=== PATIENT | female | born 1980 | race Caucasian/White ===

== ENCOUNTER 2018-02-09 20:04 | Emergency (ER) | payer BC ==
[~2018-02-09] VITALS: Ht 172.7 cm; Wt 95.2 kg
[~2018-02-09 20:04] MED LIST: AMOXICILLIN500 MG PO; CYCLOBENZAPRINE5 MG PO; DILAUDID4 MG PO; IBUPROFEN600 MG PO; MOTRIN600 MG PO; NAPROSYN500 MG PO; PERCOCET 5-3251 EACH PO
[2018-02-09] MEDS ORDERED: ZOFRAN ODT4 MG PO (20:20)
--- NOTE | 2018-02-10 15:28 | EKG ---
[facility] [address] [place] [address] Signed Normal sinus rhythm Possible Left atrial enlargement T wave abnormality, consider anterior ischemia Abnormal ECG No previous ECGs available Confirmed by ABDON READ MD ([id number]) on 02/10/2018 3:28:19 PM Electronically Signed By: ABDON READ MD 02/10/18 1528 PATIENT NAME: OWEN MARCASEY TIMMONSE Electrocardiogram DATE OF : 76 PHYSICIAN: ABDON READ MD REPORT #: [id number] REPORT IS CONFIDENTIAL AND NOT TO BE RELEASED WITHOUT AUTHORIZATION
== END 2018-02-09 22:20 | disposition home or self-care (01) ==
LOC: ED 20:04
DX: R07.9 Chest pain, unspecified (principal); Z87.891 Personal history of nicotine dependence; Z88.2 Allergy status to sulfonamides; Z88.8 Allergy status to other drugs, medicaments and biological substances
CPT/HCPCS: 71045; 80053; 84484; 85025; 85379; 93005; 93010; 96360; 96361; 99285; J7030

== ENCOUNTER 2018-04-23 09:31 | Emergency (ER) | payer BC ==
[~2018-04-23] VITALS: Ht 172.7 cm; Wt 95.2 kg
--- OUTSIDE RECORDS SUMMARY | ~2018-04-23 | XMS | Clinical Summary ---
Demographics + + + | Address | [address] | | | [place] [address] | + + + | Home Phone | | + + + | Preferred Language | Unknown | + + + | Marital Status | | + + + | Quaker Affiliation | Unknown | + + + | Race | Unknown | + + + | Ethnic Group | Unknown | + + + Author + + + | Author | [facility] | + + + | Organization | [facility] | + + + | Address | Unknown | + + + | Phone | Unavailable | + + + Support + + +---------+ + | Name | Relationship | Address | Phone | + + +---------+ + | David Mar | ECON | Unknown | | + + +---------+ + Care Team Providers + +------+ + | Care Bilingual Customer Service Name | Role | Phone | + +------+ + | Medicine, [place] | PP | Unavailable | | Family | | | + +------+ + Allergies + + + + + + | Active Allergy | Reactions | Severity | Noted | Comments | | | | | Date | | + + + + + + | Chlorhexidine | Rash | Medium | 02/08/20 | | | | | | 17 | | + + + + + + | Hydrocodone | Hives | High | 02/08/20 | | | | | | 17 | | + + + + + + | Iodinated Diagnostic | Nausea and Vomiting | Low | 02/08/20 | | | Agents | | | 17 | | + + + + + + | Nsaids | Rash, Vertigo | Medium | 02/08/20 | | | | | | 17 | | + + + + + + | Sulfa Antibiotics | Anaphylaxis | High | 02/08/20 | | | | | | 17 | | + + + + + + | Sulfites | Anaphylaxis | High | 02/08/20 | | | | | | 17 | | + + + + + + Current Medications No known medications Active Problems No known active problems Encounters +--------+ + + + + | Date | Type | Specialty | Care Team | Description | +--------+ + + + + | 02/14/ | Ancillary | | Virginia Villatoro, | H/O mitral valve | | 2017 | Procedure | | PA-C | repair | +--------+ + + + + | 02/14/ | Ancillary | | Virginia Villatoro, | H/O mitral valve | | 2017 | Orders | | PA-C | repair | +--------+ + + + + from Last 3 Months Family History + + +------+ + | Medical History | Relation | Name | Comments | + + +------+ + | Thyroid disease | Paternal | | | | | Grandmoth | | | | | er | | | + + +------+ + + +------+--------+ + | Relation | Name | Status | Comments | + +------+--------+ + | Paternal Grandmother | | | | + +------+--------+ + Social History + +-------+ +--------+------+ | Tobacco Use | Types | Packs/Day | Years | Date | | | | | Used | | + +-------+ +--------+------+ | Former Smoker | | | | | + +-------+ +--------+------+ + + + | Sex Assigned at | Date Recorded | | | | + + + | Not on file | | + + + Last Filed Vital Signs + + + + | Vital Sign | Reading | Time Taken | + + + + | Blood Pressure | 102/74 | 02/07/2017 1:26 PM PDT | + + + + | Pulse | 78 | 02/07/2017 1:26 PM PDT | + + + + | Temperature | - | - | + + + + | Respiratory Rate | - | - | + + + + | Oxygen Saturation | 98% | 02/07/2017 1:26 PM PDT | + + + + | Inhaled Oxygen | - | - | | Concentration | | | + + + + | Weight | 98.3 kg (216 lb 11.2 | 02/07/2017 1:26 PM PDT | | | oz) | | + + + + | Height | - | - | + + + + | Body Mass Index | - | - | + + + + Plan of Treatment + + + + + | Health Maintenance | Due Date | Last Done | Comments | + + + + + | Vaccine: | | | | | Dtap/Tdap/Td (1 - | 7 | | | | Tdap) | | | | + + + + + | Cervical Cancer | | | | | Screening (Pap) | 8 | | | + + + + + | Vaccine: Influenza | | | | | (#1) | 8 | | | + + + + + Procedures + +--------+ + + + | Procedure Name | Priori | Date/Time | Associated Diagnosis | Comments | | | ty | | | | + +--------+ + + + | ECHO OUTSIDE | Routin | 02/14/2018 | H/O mitral valve | Results for this | | INTERPRETATION | e | 10:42 AM | repair | procedure are in the | | STANDARD | | PDT | | results section. | + +--------+ + + + from Last 3 Months Results ECHO outside interpretation standard (02/14/2018 10:42 AM) + + + | Impressions | Performed At | + + + | 1. The left ventricle is normal in size, wall thickness and systolic | [facility] | | function EF 60-65%. 2. The right ventricle is normal in size and | [facility] | | function. 3. Mitral ring annulloplasty is in place with no stenosis | | | and trace regurgitation. 4. There is no pericardial effusion. | | + + + + + + | Narrative | Performed At | + + + | Patient Name: Barb Mar Date of : 1980 | [facility] | | Performing Physician: Andra Powell | RADIOLOGY | | | | | INDICATIONS S/P MV repair CONCLUSIONS | | | 1. The left ventricle is normal in size, wall thickness and systolic | | | function EF 60-65%. 2. The right ventricle is normal in size and | | | function. 3. Mitral ring annulloplasty is in place with no stenosis | | | and trace regurgitation. 4. There is no pericardial effusion. | | | FINDINGS -------- ECG rhythm: Sinus rhythm. Study: A 2-dimensional | | | transthoracic echocardiogram with m-mode, spectral and color flow | | | Doppler was perfomed. Study: This was a technically adequate study. | | | Left Ventricle: Overall left ventricular systolic function is normal | | | with, an EF between 60 - 65 %. Left Ventricle: The left ventricle | | | cavity size is normal. Left Ventricle: No regional wall motion | | | abnormalities. Right Ventricle: The right ventricle is normal in size | | | and function. Left Atrium: The left atrium is normal in size. Right | | | Atrium: The right atrium is normal in size. Aortic Valve: The | | | aortic valve is trileaflet. Aortic Valve: There is no evidence of | | | aortic regurgitation. Aortic Valve: There is no evidence of aortic | | | stenosis. Mitral Valve: There is trace mitral regurgitation. Mitral | | | Valve: Mitral ring annulloplasty is in place. Tricuspid Valve: The | | | tricuspid valve appears structurally normal. Tricuspid Valve: Trace | | | tricuspid regurgitation present. Tricuspid Valve: There is no | | | evidence of pulmonary hypertension. Tricuspid Valve: The right | | | ventricular systolic pressure (pulmonary artery systolic pressure), as | | | measured by Doppler, is 23.83mmHg. Pulmonic Valve: The pulmonic | | | valve is normal. Pericardium: There is no pericardial effusion. | | | Pericardium: No pleural effusion seen. IVC/Hepatic Veins: The IVC is | | | small (<1.5cm) and collapses with sniff, consistent with central | | | venous pressures of 0-5mmHg. Aorta: The aortic root, ascending aorta | | | and aortic arch are normal. MEASUREMENTS Ao | | | asc: 2.98 cm Ao Diam: 2.[address] junct: 3.00 cm | | | IVC: 1.37 cm LA Diam: 4.70 cm LA Major: 4.98 cm | | | EDV(Teich): 128.44 ml IVSd: 0.91 cm LVIDd: 5.18 cm | | | LVPWd: 0.99 cm LVOT Area: 3.96 cm2 LVOT Diam: 2.24 cm | | | %FS: 26.26 % EF(Teich): 51.13 % ESV(Teich): 62.76 ml | | | LVIDs: 3.82 cm SV(Teich): 65.68 ml RA Major: 6.05 cm RV | | | Major: 8.16 cm RVIDd: 2.84 cm TV Debbie Diam: 3.24 cm Ao | | | Root: 2.93 cm Ao Diam SVals: 2.98 cm LVEF MOD A2C: 56.44 | | | % SV MOD A2C: 52.96 ml LVEF MOD A4C: 61.84 % SV MOD | | | A4C: 69.79 ml EF Biplane: 59.62 % LVEDV MOD BP: 104.53 | | | ml LVESV MOD BP: 42.20 ml LVEDV MOD A2C: 93.82 ml LVLd | | | A2C: 8.14 cm LVEDV MOD A4C: 112.85 ml LVLd A4C: 8.46 cm | | | LVESV MOD A2C: 40.86 ml LVLs A2C: 7.20 cm LVESV MOD | | | A4C: 43.06 ml LVLs A4C: 7.05 cm LAESV(A-L): 42.71 ml | | | LAESV Index (A-L): 20.43 ml/m2 LAAs A2C: 15.63 cm2 LAESV A-L | | | A2C: 40.81 ml LALs A2C: 5.08 cm LAAs A4C: 16.36 cm2 | | | LAESV A-L A4C: 44.66 ml LALs A4C: 5.08 cm RAAs: 18.39 | | | cm2 RAESV A-L: 49.99 ml RAESV MOD: 48.83 ml RALs: 5.74 | | | cm TAPSE: 2.56 cm AV maxP.33 mmHg AV meanP.47 | | | mmHg AV Vmax: 1.15 m/s AV Vmean: 0.72 m/s AV VTI: 22.16 | | | cm ZULLY Vmax: 2.78 cm2 ZULLY (VTI): 3.49 cm2 LVOT maxPG: | | | 2.62 mmHg LVOT meanP.58 mmHg LVSI Dopp: 37.03 ml/m2 | | | LVSV Dopp: 77.40 ml LVOT Vmax: 0.81 m/s LVOT Vmean: 0.59 | | | m/s LVOT VTI: 19.53 cm MV A Kieran: 0.58 m/s MV Dec | | | [place]: 5.68 m/s2 MV DecT: 254.23 ms MV E Kieran: 1.44 m/s | | | MV E/A Ratio: 2.46 MV PHT: 73.72 ms MVA By PHT: 2.98 | | | cm2 MV maxP.20 mmHg MV meanP.81 mmHg MV Vmax: | | | 1.43 m/s MV Vmean: 0.57 m/s MV VTI: 35.69 cm MVA (VTI): | | | 2.16 cm2 Septal e': 0.05 m/s Septal E/e': 27.71 Lateral | | | e': 0.08 m/s Lateral E/e': 17.14 RAP: 5 mmHg RVSP: | | | 23.83 mmHg TR maxP.83 mmHg TR Vmax: 2.16 m/s S': | | | 0.11 m/s Content Director: JERSEY Authenticated by: Andra Powell | | | Report Date/Time: 02-14-2018 12:9:45 | | + + + + + | Procedure Note | + + | Gonzalo Negron Results In - 02/14/2018 12:10 PM PDT Patient Name: Karen Mar | | : 1980Accession: [id number] Physician: Andra | | Sherry INDICATIONS------ | | -----S/P MV repairCONCLUSIONS 1. The left ventricle is normal in size, wall | | thickness and systolic function EF 60-65%.2. The right ventricle is normal in size and | | function.3. Mitral ring annulloplasty is in place with no stenosis and trace | | regurgitation. 4. There is no pericardial effusion.FINDINGS--------ECG rhythm: Sinus | | rhythm.Study: A 2-dimensional transthoracic echocardiogram with m-mode, spectral and | | color flow Doppler was perfomed. Study: This was a technically adequate study.Left | | Ventricle: Overall left ventricular systolic function is normal with, an EF between 60 - | | 65 %. Left Ventricle: The left ventricle cavity size is normal. Left Ventricle: No | | regional wall motion abnormalities.Right Ventricle: The right ventricle is normal in | | size and function.Left Atrium: The left atrium is normal in size.Right Atrium: The right | | atrium is normal in size. Aortic Valve: The aortic valve is trileaflet. Aortic Valve: | | There is no evidence of aortic regurgitation. Aortic Valve: There is no evidence of | | aortic stenosis.Mitral Valve: There is trace mitral regurgitation. Mitral Valve: Mitral | | ring annulloplasty is in place.Tricuspid Valve: The tricuspid valve appears structurally | | normal. Tricuspid Valve: Trace tricuspid regurgitation present. Tricuspid Valve: There | | is no evidence of pulmonary hypertension. Tricuspid Valve: The right ventricular | | systolic pressure (pulmonary artery systolic pressure), as measured by Doppler, is | | 23.83mmHg.Pulmonic Valve: The pulmonic valve is normal.Pericardium: There is no | | pericardial effusion. Pericardium: No pleural effusion seen.IVC/Hepatic Veins: The IVC | | is small (<1.5cm) and collapses with sniff, consistent with central venous pressures of | | 0-5mmHg.Aorta: The aortic root, ascending aorta and aortic arch are | | normal.MEASUREMENTS Ao asc: 2.98 cmAo Diam: 2.[address] junct: 3.00 | | cmIVC: 1.37 cmLA Diam: 4.70 cmLA Major: 4.98 cmEDV(Teich): 128.44 mlIVSd: 0.91 | | cmLVIDd: 5.18 cmLVPWd: 0.99 cmLVOT Area: 3.96 [id number] Diam: 2.24 cm%FS: 26.26 | | %EF(Teich): 51.13 %ESV(Teich): 62.76 mlLVIDs: 3.82 cmSV(Teich): 65.68 mlRA | | Major: 6.05 cmRV Major: 8.16 cmRVIDd: 2.84 cmTV Debbie Diam: 3.24 cmAo Root: 2.93 | | cmAo Diam SVals: 2.98 cmLVEF MOD A2C: 56.44 %SV MOD A2C: 52.96 mlLVEF MOD A4C: | | 61.84 %SV MOD A4C: 69.79 mlEF Biplane: 59.62 %LVEDV MOD BP: 104.53 mlLVESV MOD BP: | | 42.20 mlLVEDV MOD A2C: 93.82 mlLVLd A2C: 8.14 cmLVEDV MOD A4C: 112.85 mlLVLd | | A4C: 8.46 cmLVESV MOD A2C: 40.86 mlLVLs A2C: 7.20 cmLVESV MOD A4C: 43.06 mlLVLs | | A4C: 7.05 cmLAESV(A-L): 42.71 mlLAESV Index (A-L): 20.43 ml/m2LAAs A2C: 15.63 | | [id number] A-L A2C: 40.81 mlLALs A2C: 5.08 cmLAAs A4C: 16.36 [id number] A-L A4C: | | 44.66 mlLALs A4C: 5.08 cmRAAs: 18.39 [id number] A-L: 49.99 mlRAESV MOD: 48.83 | | mlRALs: 5.74 cmTAPSE: 2.56 cmAV maxP.33 mmHgAV meanP.47 mmHgAV Vmax: | | 1.15 m/Falguni Vmean: 0.72 m/Falguni VTI: 22.16 cmAVA Vmax: 2.78 cm2AVA (VTI): 3.49 | | [id number] maxP.62 mmHgLVOT meanP.58 mmHgLVSI Dopp: 37.03 ml/m2LVSV Dopp: | | 77.40 mlLVOT Vmax: 0.81 m/sLVOT Vmean: 0.59 m/sLVOT VTI: 19.53 cmMV A Kieran: 0.58 | | m/sMV Dec [place]: 5.68 m/s2MV DecT: 254.23 msMV E Kieran: 1.44 m/sMV E/A Ratio: 2.46 | | MV PHT: 73.72 msMVA By PHT: 2.98 cm2MV maxP.20 mmHgMV meanP.81 mmHgMV | | Vmax: 1.43 m/sMV Vmean: 0.57 m/sMV VTI: 35.69 cmMVA (VTI): 2.16 [id number] e': | | 0.05 m/sSeptal E/e': 27.71 Lateral e': 0.08 m/sLateral E/e': 17.14 RAP: 5 | | mmHgRVSP: 23.83 mmHgTR maxP.83 mmHgTR Vmax: 2.16 m/sS': 0.11 | | m/sSonographer: DHAuthenticated by: Andra PowellSt. Mary'S Medical Centerquique Date/Time: 02-14-2018 | | 12:9:45IMPRESSION:1. The left ventricle is normal in size, wall thickness and systolic | | function EF 60-65%.2. The right ventricle is normal in size and function.3. Mitral ring | | annulloplasty is in place with no stenosis and trace regurgitation. 4. There is no | | pericardial effusion. | |IVC: 1.37 cm | |LA Diam: 4.70 cm | |LA Major: 4.98 cm | |EDV(Teich): 128.44 ml | |IVSd: 0.91 cm | |LVIDd: 5.18 cm | |LVPWd: 0.99 cm | |LVOT Area: 3.96 cm2 | |LVOT Diam: 2.24 cm | |%FS: 26.26 % | |EF(Teich): 51.13 % | |ESV(Teich): 62.76 ml | |LVIDs: 3.82 cm | |SV(Teich): 65.68 ml | |RA Major: 6.05 cm | |RV Major: 8.16 cm | |RVIDd: 2.84 cm | |TV Debbie Diam: 3.24 cm | |Ao Root: 2.93 cm | |Ao Diam SVals: 2.98 cm | |LVEF MOD A2C: 56.44 % | |SV MOD A2C: 52.96 ml | |LVEF MOD A4C: 61.84 % | |SV MOD A4C: 69.79 ml | |EF Biplane: 59.62 % | |LVEDV MOD BP: 104.53 ml | |LVESV MOD BP: 42.20 ml | |LVEDV MOD A2C: 93.82 ml | |LVLd A2C: 8.14 cm | |LVEDV MOD A4C: 112.85 ml | |LVLd A4C: 8.46 cm | |LVESV MOD A2C: 40.86 ml | |LVLs A2C: 7.20 cm | |LVESV MOD A4C: 43.06 ml | |LVLs A4C: 7.05 cm | |LAESV(A-L): 42.71 ml | |LAESV Index (A-L): 20.43 ml/m2 | |LAAs A2C: 15.63 cm2 | |LAESV A-L A2C: 40.81 ml | |LALs A2C: 5.08 cm | |LAAs A4C: 16.36 cm2 | |LAESV A-L A4C: 44.66 ml | |LALs A4C: 5.08 cm | |RAAs: 18.39 cm2 | |RAESV A-L: 49.99 ml | |RAESV MOD: 48.83 ml | |RALs: 5.74 cm | |TAPSE: 2.56 cm | |AV maxP.33 mmHg | |AV meanP.47 mmHg | |AV Vmax: 1.15 m/s | |AV Vmean: 0.72 m/s | |AV VTI: 22.16 cm | |ZULLY Vmax: 2.78 cm2 | |ZULLY (VTI): 3.49 cm2 | |LVOT maxP.62 mmHg | |LVOT meanP.58 mmHg | |LVSI Dopp: 37.03 ml/m2 | |LVSV Dopp: 77.40 ml | |LVOT Vmax: 0.81 m/s | |LVOT Vmean: 0.59 m/s | |LVOT VTI: 19.53 cm | |MV A Kieran: 0.58 m/s | |MV Dec [place]: 5.68 m/s2 | |MV DecT: 254.23 ms | |MV E Kieran: 1.44 m/s | |MV E/A Ratio: 2.46 | |MV PHT: 73.72 ms | |MVA By PHT: 2.98 cm2 | |MV maxP.20 mmHg | |MV meanP.81 mmHg | |MV Vmax: 1.43 m/s | |MV Vmean: 0.57 m/s | |MV VTI: 35.69 cm | |MVA (VTI): 2.16 cm2 | |Septal e': 0.05 m/s | |Septal E/e': 27.71 | |Lateral e': 0.08 m/s | |Lateral E/e': 17.14 | |RAP: 5 mmHg | |RVSP: 23.83 mmHg | |TR maxP.83 mmHg | |TR Vmax: 2.16 m/s | |S': 0.11 m/s | | | |Content Director: | |Authenticated by: Andra Powell | |Report Date/Time: 02-14-2018 12:9:45 | | | |IMPRESSION: | |1. The left ventricle is normal in size, wall thickness and systolic function EF 60-65%. | |2. The right ventricle is normal in size and function. | |3. Mitral ring annulloplasty is in place with no stenosis and trace regurgitation. | |4. There is no pericardial effusion. | + + + + + + + | Performing | Address | City/State/Zipcode | Phone Number | | Organization | | | | + + + + + | [facility] | [address] | [place] [address] | | + + + + + from Last 3 Months Insurance +---------+--------+ +------+-------+---------+ | Payer | Benefi | Subscriber | Type | Phone | Address | | | t Plan | ID | | | | | | / | | | | | | | Group | | | | | +---------+--------+ +------+-------+---------+ | [employer] | BLUE | [id number] | | | | | | CROSS | 8 | | | | | | BLUE | | | | | | | SHIELD | | | | | | | FEP | | | | | +---------+--------+ +------+-------+---------+ + +--------+ +--------+ + + | Guarantor Name | Accoun | Relation to | Date | Phone | Billing Address | | | t Type | Patient | of | | | | | | | | | | + +--------+ +--------+ + + | BARB MAR | Person | Self [birth year] Home: | [address] | | | al/Fam | | 1980 | [phone] | [place] [address] | | | sae | | | [phone] | | + +--------+ +--------+ + +"
--- OUTSIDE RECORDS SUMMARY | ~2018-04-23 | XMS | Clinical Summary ---
Demographics + + + | Address | [address] | | | [place] [address] | + + + | Home Phone | | + + + | Preferred Language | Unknown | + + + | Marital Status | | + + + | Anabaptism Affiliation | Unknown | + + + | Race | Unknown | + + + | Ethnic Group | Unknown | + + + Author + + + | Author | [facility] | + + + | Organization | [facility] | + + + | Address | Unknown | + + + | Phone | Unavailable | + + + Support + + +---------+ + | Name | Relationship | Address | Phone | + + +---------+ + | David Mar | ECON | Unknown | | + + +---------+ + Care Team Providers + +------+ + | Care Realtime Reporter Name | Role | Phone | + +------+ + | Medicine, [place] | PP | Unavailable | | Family [...] Barb Mar Date of : 1980 | [facility] | | Performing Physician: Andra Powell | [...] 0.58 m/s MV Dec | | | Crisp: 5.68 m/s2 MV DecT: 254.23 ms MV [...] m/s S': | | | 0.11 m/s Worker'S Compensation Claims Examiner: JERSEY Authenticated by: Andra Powell | | | Report Date/Time: 02-14-2018 12:9:45 | | + + + + + | Procedure Note | + + | Gonzalo Negron Results In - 02/14/2018 12:10 PM PDT Patient Name: Karen Mar | | : 1980Accession: [id number] Physician: Andra | | Sherry INDICATIONS------ | [...] cmLVIDd: 5.18 cmLVPWd: 0.99 cmLVOT Area: 3.96 [id number] Diam: 2.24 cm%FS: 26.26 | | %EF(Teich): [...] (A-L): 20.43 ml/m2LAAs A2C: 15.63 | | [id number] A-L A2C: 40.81 mlLALs A2C: 5.08 cmLAAs A4C: 16.36 gs6IQHAM A-L A4C: | | 44.66 mlLALs A4C: 5.08 cmRAAs: 18.39 [id number] A-L: 49.99 mlRAESV MOD: 48.83 | | mlRALs: 5.74 cmTAPSE: 2.56 cmAV maxP.33 mmHgAV meanP.47 mmHgAV Vmax: | | 1.15 m/Falguni Vmean: 0.72 m/Falguni VTI: 22.16 cmAVA Vmax: 2.78 cm2AVA (VTI): 3.49 | | [id number] maxP.62 mmHgLVOT meanP.58 mmHgLVSI Dopp: 37.03 ml/m2LVSV Dopp: | | 77.40 mlLVOT Vmax: 0.81 m/sLVOT Vmean: 0.59 m/sLVOT VTI: 19.53 cmMV A Kieran: 0.58 | | m/sMV Dec Crisp: 5.68 m/s2MV DecT: 254.23 msMV E Kieran: 1.44 m/sMV E/A Ratio: 2.46 | | MV PHT: 73.72 msMVA By PHT: 2.98 cm2MV maxP.20 mmHgMV meanP.81 mmHgMV | | Vmax: 1.43 m/sMV Vmean: 0.57 m/sMV VTI: 35.69 cmMVA (VTI): 2.16 [id number] e': | | 0.05 m/sSeptal E/e': 27.71 Lateral e': 0.08 m/sLateral E/e': 17.14 RAP: 5 | | mmHgRVSP: 23.83 mmHgTR maxP.83 mmHgTR Vmax: 2.16 m/sS': 0.11 | | m/sSonographer: DHAuthenticated by: Andra PowellWayne Healthcare Main Campusquique Date/Time: 02-14-2018 | | 12:9:45IMPRESSION:1. The left [...] A Kieran: 0.58 m/s | |MV Dec Crisp: 5.68 m/s2 | |MV DecT: 254.23 ms [...] | |S': 0.11 m/s | | | |Worker'S Compensation Claims Examiner: | |Authenticated by: Andra Powell | |Report [...] [facility] | [address] | [place] [address] | | + + + + + from Last 3 Months Insurance +---------+--------+ +------+-------+---------+ | Payer | Benefi | Subscriber | Type | Phone | Address | | | t Plan | ID | | | | | | / | | | | | | | Group | | | | | +---------+--------+ +------+-------+---------+ | [employer] | BLUE | [id number] | | | | | | CROSS [...] Self | [birth year] | Home: | [address] | | | al/Fam | | 1980 | [phone] | [place] [address] | | | sae | | | [phone] | | + +--------+ +--------+ + +"
--- OUTSIDE RECORDS SUMMARY | ~2018-04-23 | XMS | Clinical Summary ---
Demographics + + + | Address | [address] | | | [place] [address] | + + + | Home Phone | | + + + | Preferred Language | Unknown | + + + | Marital Status | | + + + | Voodoo Affiliation | NON | + + + | Race | White | + + + | Ethnic Group | Not or | + + + Author + + + | Author | [facility] | + + + | Organization | [facility] | + + + | Address | Unknown | + + + | Phone | Unavailable | + + + Support + + + + + | Name | Relationship | Address | Phone | + + + + + | PEGGY MAR | ECON | [address] | | | | | [place] | | | | | [address] | | + + + + + Care Team Providers + +------+ + | Care Data Processing Specialist Name | Role | Phone | + +------+ + | Joanne Florence | PP | Unavailable | + +------+ + Source Comments ISADORA is fully live on both [facility] Ambulatory and [facility] InPatient.Formerly [facility] Allergies + + + + + + | Active Allergy | Reactions | Severity | Noted | Comments | | | | | Date | | + + + + + + | Contrast Medium | Nausea and Vomiting | | 10/17/19 | MRI contrast | | | | | 16 | | + + + + + + | Naproxen | Rash | | 01/17/20 | | | | | | 16 | | + + + + + + | Prednisone | Mental Status Change | High | 02/03/20 | Mood changes. 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 | + + + Family History + + +------+ + | Medical History | Relation | Name | Comments | + + +------+ + | Allergies | Father | | | + + +------+ + | Blood Disease | Father | | | + + +------+ + | Allergies | Mother | | | + + +------+ + | Arthritis | Mother | | | + + +------+ + | Cancer | Paternal | | | | | Aunt | | | + + +------+ + | Psychiatry | Paternal | | | | | Aunt | | | + + +------+ + | Thyroid | Paternal | | | | | Grandmoth | | | | | er | | | + + +------+ + + +------+--------+ + | Relation | Name | Status | Comments | + +------+--------+ + | Father | | | | + +------+--------+ + | Mother | | | | + +------+--------+ + | Paternal Aunt | | | | + +------+--------+ + | Paternal Grandmother | | | | + +------+--------+ + Social History + + + +--------+ + | Tobacco Use | Types | Packs/Day | Years | Date | | | | | Used | | + + + +--------+ + | Former Smoker | Cigarettes | | 2 | 02/02/1998 - | | | | | | 08/05/1999 | + + + +--------+ + + +---+---+---+ | Smokeless Tobacco: | | | | | Never Used | | | | + +---+---+---+ + + | Tobacco Cessation: Counseling Given: No | + + + + +---------+ + | Alcohol Use | Drinks/We | oz/Week | Comments | | | ek | | | + + +---------+ + | Yes | 0 | 0.0 | social | | | Standard | | | | | drinks or | | | | | | | | | | equivalen | | | | | t | | | + + +---------+ + + + + | Sex Assigned at | Date Recorded | | | | + + + | Not on file | | + + + Last Filed Vital Signs + + + + | Vital Sign | Reading | Time Taken | + + + + | Blood Pressure | 139/79 | 04/25/2016 9:55 AM PDT | + + + + | Pulse | 80 | 04/25/2016 9:55 AM PDT | + + + + | Temperature | 36.6 C (97.9 F) | 02/23/2016 10:58 AM PDT | + + + + | Respiratory Rate | 16 | 02/23/2016 10:58 AM PDT | + + + + | Oxygen Saturation | 96% | 04/25/2016 9:55 AM PDT | + + + + | Inhaled Oxygen | - | - | | Concentration | | | + + + + | Weight | 96.8 kg (213 lb 6.4 | 02/23/2016 10:58 AM PDT | | | oz) | | + + + + | Height | 172.7 cm (5' 8") | 02/10/2016 1:37 PM PDT | + + + + | Body Mass Index | 32.45 | 02/23/2016 10:58 AM PDT | + + + + Plan of Treatment + + + + + | Health Maintenance | Due Date | Last Done | Comments | + + + + + | INFLUENZA VACCINE | 09/01/201 | | | | (FLU SHOT) | 8 | | | + + + + + Results Not on filefrom Last 3 Months Insurance + +--------+ +------+ + + | Payer | Benefi | Subscriber | Type | Phone | Address | | | t Plan | ID | | | | | | / | | | | | | | Group | | | | | + +--------+ +------+ + + | BLUE [employer] BLUE | BCBS | xxxxxxxxxxx | PPO | +- | [address] [address] [place] | | SHIELD | OUT OF | x | | [phone] | [place], [place] | | | [place] | | | | [address] | + +--------+ +------+ + + + +--------+ +--------+ + + | Guarantor Name | Accoun | Relation to | Date | Phone | Billing Address | | | t Type | Patient | of | | | | | | | | | | + +--------+ +--------+ + + | BARB MAR | Person | Self | [birth year] | Home: | [address] | | | al/Fam | | 1980 | [phone] | [place] [address] | | | sae | | | [phone] | | + +--------+ +--------+ + +
--- OUTSIDE RECORDS SUMMARY | ~2018-04-23 | XMS | Encounter Summary ---
Demographics + + + | Address | [address] | | | [place] [address] | + + + | Home Phone | | + + + | Preferred Language | Unknown | + + + | Marital Status | | + + + | Yarsanism Affiliation | Unknown | + + + | Race | Unknown | + + + | Ethnic Group | Unknown | + + + Author + + + | Author | [facility] | + + + | Organization | [facility] | + + + | Address | Unknown | + + + | Phone | Unavailable | + + + Support + + +---------+ + | Name | Relationship | Address | Phone | + + +---------+ + | David Bonilla | ECON | Unknown | | + + +---------+ + Care Team Providers + +------+ + | Care Adult School Counselor Name | Role | Phone | + +------+ + | Medicine, G[place] | PCP | Unavailable | | Family | | | + +------+ + Encounter Details +--------+ + + + + | Date | Type | Department | Care Team | Description | +--------+ + + + + | 02/14/ | Ancillary | [facility] | Virginia Villatoro, | H/O mitral valve | | 2018 | Orders | ECHO | PA-C [address] | repair | | | | | [address]lena [address] | | | | | | [place] | | | | | | [address] | | | | | | [phone] | | | | | | | | +--------+ + + + + Social History + +-------+ +--------+------+ | [...] on file | | + + + as of this encounter Plan of Treatment Not on fileas of this encounter Results ECHO outside interpretation standard (02/14/2018 10:42 AM) + + + | Impressions | Performed At | + + + | 1. The left ventricle is normal in size, wall thickness and systolic | [facility] | | function EF 60-65%. 2. The right ventricle is normal in size and | RADIOLOGY | | function. 3. Mitral ring annulloplasty is in place with no stenosis | | | and trace regurgitation. 4. There is no pericardial effusion. | | + + + + + + | Narrative | Performed At | + + + | Patient Name: Dianne Bonilla Date of : 1980 | [facility] | | Performing Physician: Andra Powell [...] 0.58 m/s MV Dec | | | [place]: 5.68 m/s2 MV DecT: 254.23 ms MV [...] m/s S': | | | 0.11 m/s Product Advisor: JERSEY Authenticated by: Andra Powell | | | Report Date/Time: 02-14-2018 12:9:45 | | + + + + + | Procedure Note | + + | Jamil, Rad Results In - 02/14/2018 12:10 PM PDT Patient Name: Mari Bonilla of | | : 1980Accession: [id number] Physician: Andra | | Alsamara INDICATIONS------ | | -----S/P MV repairCONCLUSIONS 1. [...] cmLVIDd: 5.18 cmLVPWd: 0.99 cmLVOT Area: 3.96 dr8NXWT Diam: 2.24 cm%FS: 26.26 | | %EF(Teich): [...] (A-L): 20.43 ml/m2LAAs A2C: 15.63 | | hr7MTLBC A-L A2C: 40.81 mlLALs A2C: 5.08 cmLAAs A4C: 16.36 ae9GTECA A-L A4C: | | 44.66 mlLALs A4C: 5.08 cmRAAs: 18.39 rn1VBYEL A-L: 49.99 mlRAESV MOD: 48.83 | | mlRALs: 5.74 cmTAPSE: 2.56 cmAV maxP.33 mmHgAV meanP.47 mmHgAV Vmax: | | 1.15 m/Falguni Vmean: 0.72 m/Falguni VTI: 22.16 cmAVA Vmax: 2.78 cm2AVA (VTI): 3.49 | | wj0QLSQ maxP.62 mmHgLVOT meanP.58 mmHgLVSI Dopp: 37.03 ml/m2LVSV Dopp: | | 77.40 mlLVOT Vmax: 0.81 m/sLVOT Vmean: 0.59 m/sLVOT VTI: 19.53 cmMV A Kieran: 0.58 | | m/sMV Dec [place]: 5.68 m/s2MV DecT: 254.23 msMV E Kieran: 1.44 m/sMV E/A Ratio: 2.46 | | MV PHT: 73.72 msMVA By PHT: 2.98 cm2MV maxP.20 mmHgMV meanP.81 mmHgMV | | Vmax: 1.43 m/sMV Vmean: 0.57 m/sMV VTI: 35.69 cmMVA (VTI): 2.16 hd9Mciujf e': | | 0.05 m/sSeptal E/e': 27.71 Lateral e': 0.08 m/sLateral E/e': 17.14 RAP: 5 | | mmHgRVSP: 23.83 mmHgTR maxP.83 mmHgTR Vmax: 2.16 m/sS': 0.11 | | m/sSonographer: DHAuthenticated by: Andra Davisort Date/Time: 02-14-2018 | | 12:9:45IMPRESSION:1. The left [...] A Kieran: 0.58 m/s | |MV Dec [place]: 5.68 m/s2 | |MV DecT: 254.23 ms [...] | |S': 0.11 m/s | | | |Product Advisor: JERSEY | |Authenticated by: Andra Powell | |Report [...] | + + + + + | [facility] | [address] | [place] [address] | | + + + + + in this encounter Visit Diagnoses + + | Diagnosis | + + | H/O mitral valve repair | + + | Personal history of surgery to heart and great vessels, presenting hazards to health | + +"
--- OUTSIDE RECORDS SUMMARY | ~2018-04-23 | XMS | Clinical Summary ---
Demographics + + + | Address | [address] | | | [place] [address] | + + + | Home Phone | | + + + | Preferred Language | Unknown | + + + | Marital Status | Unknown | + + + | Faith Affiliation | Unknown | + + + | Race | Unknown | + + + | Ethnic Group | Unknown | + + + Author + + + | Author | [facility] | | | and [place] | + + + | Organization | [facility] | | | and [place] | + + + | Address | Unknown | + + + | Phone | Unavailable | + + + Support + + +---------+ + | Name | Relationship | Address | Phone | + + +---------+ + | NONE,PER PT | ECON | Unknown | Unavailable | + + +---------+ + Care Team Providers + +------+ + | Care Vacuum Worker Name | Role | Phone | + +------+ + PP | Unavailable | + +------+ + Allergies Not on File Current Medications Not on file Active Problems Not on file Social History + +-------+ +--------+------+ | Tobacco Use | Types | Packs/Day | Years | Date | | | | | Used | | + +-------+ +--------+------+ | Never Assessed | | | | | + +-------+ +--------+------+ + + + | Sex Assigned at | Date Recorded | | | | + + + | Not on file | | + + + Plan of Treatment + [...] + Results Not on filefrom Last 3 Months"
--- OUTSIDE RECORDS SUMMARY | ~2018-04-23 | XMS | Clinical Summary ---
Demographics + + + | Address | [address] | | | [place] [address] | + + + | Home Phone | | + + + | Preferred Language | Unknown | + + + | Marital Status | Unknown | + + + | Yazdanism Affiliation | Unknown | + + + | Race | Unknown | + + + | Ethnic Group | Unknown | + + + Author + + + | Author | [facility] | | | and [place] | + + + | Organization | [facility] | | | and [...] Team Providers + +------+ + | Care Crew Mess Attendant Name | Role | Phone | + [...]
--- OUTSIDE RECORDS SUMMARY | ~2018-04-23 | XMS | Encounter Summary ---
Demographics + + + | Address | [address] | | | [place] [address] | + + + | Home Phone | | + + + | Preferred Language | Unknown | + + + | Marital Status | | + + + | Jew Affiliation | Unknown | + + + | Race | Unknown | + + + | Ethnic Group | Unknown | + + + Author + + + | Author | [facility] | + + + | Organization | [facility] | + + + | Address | Unknown | + + + | Phone | Unavailable | + + + Support + + +---------+ + | Name | Relationship | Address | Phone | + + +---------+ + | David Bonilla | ECON | Unknown | | + + +---------+ + Care Team Providers + +------+ + | Care Gum Puller Name | Role | Phone | + +------+ + | Medicine, [place] | PCP | Unavailable | | Family | | | + +------+ + Encounter Details +--------+ + + + + | Date | Type | Department | Care Team | Description | +--------+ + + + + | 02/14/ | Ancillary | [facility] | Virginia Villatoro, | H/O mitral valve | | 2018 | Procedure | ECHO | PA-C [address] | repair | | | | | [address]lena [address] | | | | | | [place] | | | | | | [address] | | | | | | [phone] | | | | | | | [...] Treatment Not on fileas of this encounter Procedures + +--------+ + + + | [...] section. | + +--------+ + + + in this encounter Results ECHO outside interpretation standard [...] Dianne Bonilla Date of : 1980 | [facility] | | Performing Physician: Andra [...] 0.58 m/s MV Dec | | | [place]: 5.68 m/s2 MV DecT: 254.23 ms MV [...] m/s S': | | | 0.11 m/s Food And Nutrition Teacher: JERSEY Authenticated by: Andra Powell | | | Report Date/Time: 02-14-2018 12:9:45 | | + + + + + | Procedure Note | + + | Gonzalo Negron In - 02/14/2018 12:10 PM PDT Patient Name: Mari Bonilla of | | : 1980Accession: [id number] Physician: Andra | | Sherry INDICATIONS------ | [...] cmLVIDd: 5.18 cmLVPWd: 0.99 cmLVOT Area: 3.96 fj1GEGF Diam: 2.24 cm%FS: 26.26 | | %EF(Teich): [...] (A-L): 20.43 ml/m2LAAs A2C: 15.63 | | bo0YJTUX A-L A2C: 40.81 mlLALs A2C: 5.08 cmLAAs A4C: 16.36 wq9FQTWN A-L A4C: | | 44.66 mlLALs A4C: 5.08 cmRAAs: 18.39 cs3LUVGG A-L: 49.99 mlRAESV MOD: 48.83 | | mlRALs: 5.74 cmTAPSE: 2.56 cmAV maxP.33 mmHgAV meanP.47 mmHgAV Vmax: | | 1.15 m/Falguni Vmean: 0.72 m/Falguni VTI: 22.16 cmAVA Vmax: 2.78 cm2AVA (VTI): 3.49 | | nv4SNPE maxP.62 mmHgLVOT meanP.58 mmHgLVSI Dopp: 37.03 ml/m2LVSV Dopp: | | 77.40 mlLVOT Vmax: 0.81 m/sLVOT Vmean: 0.59 m/sLVOT VTI: 19.53 cmMV A Kieran: 0.58 | | m/sMV Dec [place]: 5.68 m/s2MV DecT: 254.23 msMV E Kieran: 1.44 m/sMV E/A Ratio: 2.46 | | MV PHT: 73.72 msMVA By PHT: 2.98 cm2MV maxP.20 mmHgMV meanP.81 mmHgMV | | Vmax: 1.43 m/sMV Vmean: 0.57 m/sMV VTI: 35.69 cmMVA (VTI): 2.16 at9Ecswek e': | | 0.05 m/sSeptal E/e': 27.71 Lateral e': 0.08 m/sLateral E/e': 17.14 RAP: 5 | | mmHgRVSP: 23.83 mmHgTR maxP.83 mmHgTR Vmax: 2.16 m/sS': 0.11 | | m/sSonographer: DHAuthenticated by: Andra PowellAvita Health System [facility] Hospitalort Date/Time: 02-14-2018 | | 12:9:45IMPRESSION:1. The left [...] A Kieran: 0.58 m/s | |MV Dec [place]: 5.68 m/s2 | |MV DecT: 254.23 ms [...] | |S': 0.11 m/s | | | |Food And Nutrition Teacher: JERSEY | |Authenticated by: Andra Powell | [...] | + + + + + | [facility] | [address] | [place] [address] | | + + + + + in this encounter Visit Diagnoses + + | Diagnosis | + + | H/O mitral valve repair | + + | Personal history of surgery to heart and great vessels, presenting hazards to health | + +"
--- OUTSIDE RECORDS SUMMARY | ~2018-04-23 | XMS | Encounter Summary ---
Demographics + + + | Address | [address] | | | [place] [address] | + + + | Home Phone | | + + + | Preferred Language | Unknown | + + + | Marital Status | | + + + | Mosque Affiliation | Unknown | + + + | Race | Unknown | + + + | Ethnic Group | Unknown | + + + Author + + + | Author | [facility] | + + + | Organization | [facility] | + + + | Address | Unknown | + + + | Phone | Unavailable | + + + Support + + +---------+ + | Name | Relationship | Address | Phone | + + +---------+ + | David Bonilla | ECON | Unknown | | + + +---------+ + Care Team Providers + +------+ + | Care Chemical Plant Manager Name | Role | Phone | + +------+ + | Medicine, [place] | PCP | Unavailable | | Family | | | + +------+ + Encounter Details +--------+ + + + + | Date | Type | Department | Care Team | Description | +--------+ + + + + | 02/14/ | Ancillary | [facility] | Virginia Villatoro, | H/O mitral valve | | 2018 | Procedure | ECHO | PA-C [address] | repair | | | | | [address]lena [address] | | | | | | [place] | | | | | | [address] | | | | | | [phone] | | | | | | | [...] Dianne Bonilla Date of : 1980 | [facility] | | Performing Physician: Andra Powell [...] 0.58 m/s MV Dec | | | [place]: 5.68 m/s2 MV DecT: 254.23 ms MV [...] m/s S': | | | 0.11 m/s Senior Hadoop Developer: JERSEY Authenticated by: Andra Powell | | | Report Date/Time: 02-14-2018 12:9:45 | | + + + + + | Procedure Note | + + | Gonzalo Negron In - 02/14/2018 12:10 PM PDT Patient Name: Mari Bonilla of | | : 1980Accession: [id number] Physician: Andra | | Sherry INDICATIONS------ | [...] cmLVIDd: 5.18 cmLVPWd: 0.99 cmLVOT Area: 3.96 jp6LORL Diam: 2.24 cm%FS: 26.26 | | %EF(Teich): [...] (A-L): 20.43 ml/m2LAAs A2C: 15.63 | | cs9CDHRG A-L A2C: 40.81 mlLALs A2C: 5.08 cmLAAs A4C: 16.36 jq7VXXSD A-L A4C: | | 44.66 mlLALs A4C: 5.08 cmRAAs: 18.39 bt1NZWYS A-L: 49.99 mlRAESV MOD: 48.83 | | mlRALs: 5.74 cmTAPSE: 2.56 cmAV maxP.33 mmHgAV meanP.47 mmHgAV Vmax: | | 1.15 m/Falguni Vmean: 0.72 m/Falguni VTI: 22.16 cmAVA Vmax: 2.78 cm2AVA (VTI): 3.49 | | dk1AEKZ maxP.62 mmHgLVOT meanP.58 mmHgLVSI Dopp: 37.03 ml/m2LVSV Dopp: | | 77.40 mlLVOT Vmax: 0.81 m/sLVOT Vmean: 0.59 m/sLVOT VTI: 19.53 cmMV A Kieran: 0.58 | | m/sMV Dec [place]: 5.68 m/s2MV DecT: 254.23 msMV E Kieran: 1.44 m/sMV E/A Ratio: 2.46 | | MV PHT: 73.72 msMVA By PHT: 2.98 cm2MV maxP.20 mmHgMV meanP.81 mmHgMV | | Vmax: 1.43 m/sMV Vmean: 0.57 m/sMV VTI: 35.69 cmMVA (VTI): 2.16 id5Cvfwar e': | | 0.05 m/sSeptal E/e': 27.71 Lateral e': 0.08 m/sLateral E/e': 17.14 RAP: 5 | | mmHgRVSP: 23.83 mmHgTR maxP.83 mmHgTR Vmax: 2.16 m/sS': 0.11 | | m/sSonographer: DHAuthenticated by: Andra PowellMercy Health Tiffin Hospitalort Date/Time: 02-14-2018 | | 12:9:45IMPRESSION:1. The [...] A Kieran: 0.58 m/s | |MV Dec [place]: 5.68 m/s2 | |MV DecT: 254.23 ms [...] | |S': 0.11 m/s | | | |Senior Hadoop Developer: JERSEY | |Authenticated by: Andra Powell | [...] | + + + + + | [facility] | [address] | [place] [address] | | + + + + + in this encounter Visit Diagnoses + + | Diagnosis | + + | H/O mitral valve repair | + + | Personal history of surgery to heart and great vessels, presenting hazards to health | + +"
--- OUTSIDE RECORDS SUMMARY | ~2018-04-23 | XMS | Clinical Summary ---
Demographics + + + | Address | [address] | | | [place] [address] | + + + | Home Phone | | + + + | Preferred Language | Unknown | + + + | Marital Status | | + + + | Tenriism Affiliation | NON | + + + | Race | White | + + + | Ethnic Group | Not or | + + + Author + + + | Author | [facility] | + + + | Organization | [facility] | + + + | Address | Unknown | + + + | Phone | Unavailable | + + + Support + + + + + | Name | Relationship | Address | Phone | + + + + + | PEGGY MAR | ECON | [address] | | | | | [place] | | | | | [address] | | + + + + + Care Team Providers + +------+ + | Care Special Needs Bus Driver Name | Role | Phone | + +------+ + | Joanne Florence | PP | Unavailable | + +------+ + Source Comments ISADORA is fully live on both [facility] Ambulatory and [facility] InPatient.Replaced By [facility] Allergies + + + + + + [...] | PPO | +- | [address] [address] [place] | | SHIELD | OUT OF | x | | [address] | [place], [place] | | | [place] | | | | [address] | + +--------+ +------+ + + + +--------+ +--------+ + + | Guarantor Name | Accoun | Relation to | Date | Phone | Billing Address | | | t Type | Patient | of | | | | | | | | | | + +--------+ +--------+ + + | BARB MAR | Person | Self [birth year] | Home: | [address] | | | al/Fam | | 1980 | [phone] | [place] [address] | | | sae | | | [phone] | | + +--------+ +--------+ + +
--- OUTSIDE RECORDS SUMMARY | ~2018-04-23 | XMS | Encounter Summary ---
Demographics + + + | Address | [address] | | | [place] [address] | + + + | Home Phone | | + + + | Preferred Language | Unknown | + + + | Marital Status | | + + + | Mu-Ism Affiliation | Unknown | + + + | Race | Unknown | + + + | Ethnic Group | Unknown | + + + Author + + + | Author | [facility] | + + + | Organization | [facility] | + + + | Address | Unknown | + + + | Phone | Unavailable | + + + Support + + +---------+ + | Name | Relationship | Address | Phone | + + +---------+ + | David Bonilla | ECON | Unknown | | + + +---------+ + Care Team Providers + +------+ + | Care Social Service Technician Name | Role | Phone | + +------+ + | Medicine, [place] | PCP | Unavailable | | Family | | | + +------+ + Encounter Details +--------+ + + + + | Date | Type | Department | Care Team | Description | +--------+ + + + + | 02/14/ | Ancillary | [facility] | Virginia Villatoro, | H/O mitral valve | | 2018 | Orders | ECHO | PA-C [address] | repair | | | | | [address]lena [address] | | | | | | [place] | | | | | | [address] | | | | | | [phone] | | | | | | | [...] in size, wall thickness and systolic | [facility] | | function EF 60-65%. 2. The [...] Dianne Bonilla Date of : 1980 | [facility] | | Performing Physician: Andra Powell | [...] 0.58 m/s MV Dec | | | [place]: 5.68 m/s2 MV DecT: 254.23 ms MV [...] m/s S': | | | 0.11 m/s Commodity Trader: JERSEY Authenticated by: Andra Powell | | | Report Date/Time: 02-14-2018 12:9:45 | | + + + + + | Procedure Note | + + | Jamil, Rad Results In - 02/14/2018 12:10 PM PDT Patient Name: Mari Bonilla of | | : 1980Accession: [id number] Physician: Andra | | Alsamara INDICATIONS------ | [...] cmLVIDd: 5.18 cmLVPWd: 0.99 cmLVOT Area: 3.96 ca2CGMY Diam: 2.24 cm%FS: 26.26 | | %EF(Teich): [...] (A-L): 20.43 ml/m2LAAs A2C: 15.63 | | zi7RMEES A-L A2C: 40.81 mlLALs A2C: 5.08 cmLAAs A4C: 16.36 mt7LEIJH A-L A4C: | | 44.66 mlLALs A4C: 5.08 cmRAAs: 18.39 gk2OMXNF A-L: 49.99 mlRAESV MOD: 48.83 | | mlRALs: 5.74 cmTAPSE: 2.56 cmAV maxP.33 mmHgAV meanP.47 mmHgAV Vmax: | | 1.15 m/Falguni Vmean: 0.72 m/Falguni VTI: 22.16 cmAVA Vmax: 2.78 cm2AVA (VTI): 3.49 | | qa9OODD maxP.62 mmHgLVOT meanP.58 mmHgLVSI Dopp: 37.03 ml/m2LVSV Dopp: | | 77.40 mlLVOT Vmax: 0.81 m/sLVOT Vmean: 0.59 m/sLVOT VTI: 19.53 cmMV A Kieran: 0.58 | | m/sMV Dec [place]: 5.68 m/s2MV DecT: 254.23 msMV E Kieran: 1.44 m/sMV E/A Ratio: 2.46 | | MV PHT: 73.72 msMVA By PHT: 2.98 cm2MV maxP.20 mmHgMV meanP.81 mmHgMV | | Vmax: 1.43 m/sMV Vmean: 0.57 m/sMV VTI: 35.69 cmMVA (VTI): 2.16 zc8Dmryyf e': | | 0.05 m/sSeptal E/e': 27.71 [...] A Kieran: 0.58 m/s | |MV Dec [place]: 5.68 m/s2 | |MV DecT: 254.23 ms [...] | |S': 0.11 m/s | | | |Commodity Trader: JERSEY | |Authenticated by: Andra Powell | [...] | + + + + + | [facility] | [address] | [place] [address] | | + + + + + in this encounter Visit Diagnoses + + | Diagnosis | + + | H/O mitral valve repair | + + | Personal history of surgery to heart and great vessels, presenting hazards to health | + +"
[~2018-04-23 09:31] MED LIST changes: +ZOFRAN ODT4 MG PO
--- OUTSIDE RECORDS SUMMARY | 2018-04-23 11:52 | XMS ---
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 E.Harjit VISIT COUNT (12 MO.) [address] TOTAL 3 NOTE: Visits indicate total known visits. ED/C VISIT TRACKING (12 MO.) 04/23/2018 09:32 [facility] TYPE: Emergency COMPLAINT: - SYNCOPE 04/23/2018 00:00 [facility] TYPE: Emergency 02/09/2018 20:04 [facility] [place] TYPE: Emergency COMPLAINT: - SOB,CHEST PAIN DIAGNOSES: - Other chest pain - Personal history of nicotine dependence - Allergy status to other drugs, medicaments and biological substances status - Allergy status to sulfonamides status - Radiographic dye allergy status - Chest pain, unspecified INPATIENT VISIT TRACKING (12 MO.) No inpatient visits to display in this time frame [id number]
--- NOTE | 2018-04-24 21:07 | EKG ---
[facility] [address] [place], [place] [address] Signed Normal sinus rhythm Nonspecific ST and T wave abnormality Abnormal ECG Confirmed by BELTRAN CHARLES DO ([id number]) on 04/24/2018 9:07:22 PM Electronically Signed By: BELTRAN CHARLES DO 04/24/18 2107 PATIENT NAME: BARB MAR Electrocardiogram DATE OF : 76 PHYSICIAN: BELTRAN CHARLES DO REPORT #: [id number] REPORT IS CONFIDENTIAL AND NOT TO BE RELEASED WITHOUT AUTHORIZATION
== END 2018-04-23 12:55 | disposition short-term general hospital (02) ==
LOC: ED 09:31
PROC: 0T9B70Z Drainage of Bladder with Drainage Device, Via Natural or Artificial Opening (ICD-10-PCS; principal; 2018-04-23)
DX: R57.9 Shock, unspecified (principal); Z87.891 Personal history of nicotine dependence; Z88.2 Allergy status to sulfonamides; Z88.8 Allergy status to other drugs, medicaments and biological substances; Z91.041 Radiographic dye allergy status; Z88.5 Allergy status to narcotic agent
CPT/HCPCS: 36415; 51702; 70450; 71045; 80053; 81001; 83605; 83880; 84484; 84703; 85025; 86850; 86900; 86901; 93005; 93010; 96361; 96374; 96375; 99285; J1265; J2310; J2405; J2543; J7030

== ENCOUNTER 2023-07-07 15:21 | Emergency (ER) | payer BC ==
[~2023-07-07] VITALS: Ht 172.7 cm; Wt 103.5 kg
[2023-07-07] MEDS ORDERED: DEXAMETHASONE2 MG PO (16:55)
[2023-07-07 17:07] VITALS: BP 137/88
== END 2023-07-07 17:09 | disposition home or self-care (01) ==
LOC: ED 15:21
DX: M54.50 Low back pain, unspecified (principal); Z88.2 Allergy status to sulfonamides; Z88.6 Allergy status to analgesic agent; Z88.8 Allergy status to other drugs, medicaments and biological substances; Z91.041 Radiographic dye allergy status; Z87.891 Personal history of nicotine dependence
CPT/HCPCS: J8540

== ENCOUNTER 2024-05-24 13:44 | Emergency (ER) | payer BC ==
[~2024-05-24] VITALS: Ht 172.7 cm; Wt 104.7 kg
[~2024-05-24 13:44] MED LIST changes: +DEXAMETHASONE2 MG PO
[2024-05-24] MEDS ORDERED: ondansetron HCL 4 MG/2 ML VIAL IV ONE (17:00)
[2024-05-24 17:02] LABS: BASOPHILS 0.2 % (0-2); EOSINOPHILS 0.6 % (0-6); HEMATOCRIT 40.4 % (35.0-50.0); HEMOGLOBIN 14.3 g/dL (12.0-18.0); LYMPHOCYTES 14.4 % (24-44); MCHC 35.4 g/dl (30-36); MCV 87.7 fl (81-99); MONOCYTES 3.6 % (0-12); NEUTROPHILS 81.2 % (39-80); PLATELET COUNT 356 K/uL (140-440); RBC 4.61 M/ul (4.3-5.7); RDW 12.6 (10.5-15.0)
[2024-05-24 17:09] LABS: BILIRUBIN, URINE NEGATIVE (negative); BLOOD/HGB, URINE NEGATIVE (Negative); KETONE, URINE NEGATIVE (Negative); LEUK ESTERASE, URINE NEGATIVE (negative); NITRITE, URINE NEGATIVE (negative)
[2024-05-24 17:17] LABS: ALBUMIN 3.7 g/dL (3.4-5.0); ALBUMIN/GLOBULIN RATIO 0.97 (1.1-2.4); ANION GAP 11.6 (7-21); BILIRUBIN, TOTAL 0.5 ng/dL (0.2-1.0); BUN/CREATININE RATIO 10.81 (6.0-28.6); CALCIUM 8.6 mg/dL (8.5-10.1); CREATININE, SERUM 0.74 mg/dL (0.55-1.02); POTASSIUM 3.6 mmol/L (3.5-5.1); PROTEIN, TOTAL 7.5 g/dL (6.4-8.2)
[2024-05-24] MEDS ORDERED: SODIUM CHLORIDE 0.9% 1,000 ML IV PRN (17:30)
[2024-05-24] MEDS ORDERED: HYDROmorphone HCL 1 MG/ML SYR IV ONE (17:30)
[2024-05-24 20:33] VITALS: BP 125/74
== END 2024-05-24 20:34 | disposition home or self-care (01) ==
LOC: ED 13:44
PROVIDERS: Emergency Medicine
DX: K56.7 Ileus, unspecified (principal); M79.7 Fibromyalgia; Z87.891 Personal history of nicotine dependence; Z88.2 Allergy status to sulfonamides; Z88.8 Allergy status to other drugs, medicaments and biological substances; Z88.6 Allergy status to analgesic agent; Z91.041 Radiographic dye allergy status
CPT/HCPCS: 36415; 74176; 80053; 81003; 83690; 85025; 96374; 96375; 99284-25; J2405; J7030

== ENCOUNTER 2024-12-20 23:26 | Emergency (ER) | payer BC | END 2024-12-21 01:40 | disposition home or self-care (01) | LOC: ED 23:26 | DX: R00.2 Palpitations (principal); Z88.2 Allergy status to sulfonamides; Z88.8 Allergy status to other drugs, medicaments and biological substances; Z91.041 Radiographic dye allergy status; Z87.891 Personal history of nicotine dependence ==

== ENCOUNTER 2025-01-28 15:06 | Emergency (ER) | payer BC ==
[~2025-01-28] VITALS: Ht 172.7 cm; Wt 99.3 kg
--- NOTE | ~2025-01-28 | EKG ---
[facility] [address] [facility] [place], [place] [address] Draft EKG completed, results pending confirmation PATIENT NAME: BARB MAR Electrocardiogram DATE OF : 76 PHYSICIAN: PRELIMINARY REPORT #: [id number] REPORT IS CONFIDENTIAL AND NOT TO BE RELEASED WITHOUT AUTHORIZATION
[~2025-01-28 15:06] MED LIST changes: +CITROMA296 ML PO; +KLOR-CON M2020 MEQ PO
--- OUTSIDE RECORDS SUMMARY | 2025-01-28 15:15 | XMS ---
PreManage Notification: BARB MAR Security Stoper Events No recent Security Events currently on file CRITERIA MET - [facility] - 2 Visits in 30 Days CARE PROVIDERS There are no care providers on record at this time. Zaynab has no Care Guidelines for this patient. [facility] MO.) [facility] NOTE: Visits indicate total known visits. ED/[facility] VISIT TRACKING (12 MO.) 01/28/2025 15:07 [facility] COMPLAINT: - CHEST HURTS AND RADIATES ON LEFT ARM 01/06/2025 09:20 [facility] [place] TYPE: Emergency COMPLAINT: - CONSTIPATION DIAGNOSES: - Allergy status to other drugs, medicaments and biological substances - Allergy status to sulfonamides - Constipation, unspecified - Radiographic dye allergy status 01/01/2025 23:51 [facility] [place] TYPE: Emergency COMPLAINT: - HEAD FOGGINESS DIAGNOSES: - Allergy status to analgesic agent - Allergy status to narcotic agent - Allergy status to other drugs, medicaments and biological substances - Allergy status to sulfonamides - Personal history of nicotine dependence - Radiographic dye allergy status - Shortness of breath 12/20/2024 23:26 [facility] [place] TYPE: Emergency COMPLAINT: - CHEST PAIN DIAGNOSES: - Allergy status to other drugs, medicaments and biological substances - Allergy status to sulfonamides - Chest pain, unspecified - Palpitations - Personal history of nicotine dependence - Radiographic dye allergy status 05/24/2024 13:[address] [facility] [address] [facility] [place] TYPE: Emergency COMPLAINT: - ABDOMINAL PAIN DIAGNOSES: - Allergy status to analgesic agent - Allergy status to other drugs, medicaments and biological substances - Allergy status to sulfonamides - Fibromyalgia - Ileus, unspecified - Left lower quadrant pain - Personal history of nicotine dependence - Radiographic dye allergy status INPATIENT VISIT TRACKING (12 MO.) No inpatient visits to display in this time frame [email or web address]
[2025-01-28 16:19] LABS: BASOPHILS 0.3 % (0.1-1.2); EOSINOPHILS 0.9 % (0.7-5.8); HEMATOCRIT 39.9 % (34.1-44.9); HEMOGLOBIN 13.6 g/dL (11.2-15.7); LYMPHOCYTES 23.8 % (19.3-51.7); MCH 29.4 PG (25.6-32.2); MCHC 34.1 g/dL (32.2-35.5); MCV 86.2 fL (79.4-94.8); MONOCYTES 6.9 % (4.7-12.5); NEUTROPHILS 67.6 % (34.0-71.1); PLATELET COUNT 347 K/uL (182-369); RBC 4.63 M/uL (3.93-5.22)
[2025-01-28 16:31] LABS: INR 0.99 (0.80-1.30); PROTIME 12.7 Sec (11.2-14.2)
[2025-01-28 16:38] LABS: ALBUMIN 3.7 g/dL (3.4-5.0); ALBUMIN/GLOBULIN RATIO 1.03 (1.1-2.4); ALKALINE PHOSPHATASE 115 U/L (46-116); ALT (SGPT) 34 U/L (14-59); ANION GAP 12.6 (7-21); AST (SGOT) 14 U/L (15-37); BILIRUBIN, TOTAL 0.3 mg/dL (0.2-1.0); BUN/CREATININE RATIO 16.43 (6.0-28.6); CALCIUM 8.9 mg/dL (8.5-10.1); CARBON DIOXIDE 26 mmol/L (21-32); CHLORIDE 105 mmol/L (98-107); CREATININE, SERUM 0.73 mg/dL (0.55-1.02); GLOMERULAR FILTRATION RATE,EST 103 mL/min (>60); POTASSIUM 3.6 mmol/L (3.5-5.1); PROTEIN, TOTAL 7.3 g/dL (6.4-8.2); UREA NITROGEN 12 mg/dL (7-18)
[2025-01-28 19:25] VITALS: BP 112/70
[2025-01-28] MEDS ORDERED: TOPROL XL25 MG PO (19:32)
== END 2025-01-28 19:25 | disposition home or self-care (01) ==
LOC: ED 15:06
PROVIDERS: Emergency Medicine
DX: R07.89 Other chest pain (principal); Z88.2 Allergy status to sulfonamides; Z91.041 Radiographic dye allergy status; Z88.6 Allergy status to analgesic agent; Z88.5 Allergy status to narcotic agent; Z88.8 Allergy status to other drugs, medicaments and biological substances; Z87.891 Personal history of nicotine dependence
CPT/HCPCS: 36415; 71045; 80053; 84484; 84703; 85025; 85610; 93005; 93010; 99285-25

== ENCOUNTER 2025-07-30 19:28 | Emergency (ER) | payer BC ==
[~2025-07-30] VITALS: Ht 172.7 cm; Wt 99.3 kg
[~2025-07-30 19:28] MED LIST changes: +TOPROL XL25 MG PO
[2025-07-30] MEDS ORDERED: ALBUTEROL/IPRATROPIUM 3 ML NEB INH ONE (20:15)
[2025-07-30 21:33] VITALS: BP 133/71
== END 2025-07-30 21:34 | disposition home or self-care (01) ==
LOC: ED 19:28
DX: J20.8 Acute bronchitis due to other specified organisms (principal); Z88.2 Allergy status to sulfonamides; Z88.6 Allergy status to analgesic agent; Z88.8 Allergy status to other drugs, medicaments and biological substances; Z91.041 Radiographic dye allergy status; Z88.5 Allergy status to narcotic agent; Z87.891 Personal history of nicotine dependence
CPT/HCPCS: 71045; 99283-25